=== PATIENT | male | born 1955 | race Caucasian/White ===

== ENCOUNTER 2017-12-01 11:45 | Emergency (ER) | payer OTHER ==
[2017-12-01] MEDS: TETANUS/DIPHTHERIA TOXOID ADULT 0.5 ML VIAL IM (13:35)
== END 2017-12-01 14:08 | disposition home or self-care (01) ==
LOC: PHEFT 11:45
DX: L03.116 Cellulitis of left lower limb (principal); I10 Essential (primary) hypertension; Z23 Encounter for immunization; Z88.8 Allergy status to other drugs, medicaments and biological substances; Z79.899 Other long term (current) drug therapy
CPT/HCPCS: 10060; 73560; 90471; 90714; 99283-25